=== PATIENT | female | born 1975 | race Hispanic/Latino ===

== ENCOUNTER 2024-05-19 00:45 | Observation (INO) | payer OTHER ==
[2024-05-19 01:35] LABS: PT Prothrombin Time 12.3 SECONDS (9.4-12.5); Protime INR 1.12
[2024-05-19 01:40] LABS: Absolute Basophils 0.1 K/uL (0-0.5); Absolute Eosinophils 0.1 K/uL (0-0.5); Absolute Lymphocytes (CBC) 3.4 K/uL (0.7-4.9); Absolute Monocytes 0.4 K/uL (0.1-1.3); Absolute Neutrophil 4.3 K/uL (1.8-8.0); Basophils % 0.8 % (0-1.3); Eosinophils % 1.7 % (0-4.4); Hematocrit 35.8 % (36.0-45.0); Hemoglobin 11.7 g/dL (12.0-15.0); Lymphocytes % 40.6 % (15.3-44.8); MCH 26.8 pg (27.0-35.0); MCHC 32.7 g/dL (32.0-36.0); MCV 82.1 fL (80-100); MPV 8.9 fL (7.6-11.3); Monocytes % 5.2 % (3.3-12.3); Neutrophils % 51.7 % (41.7-73.7); Platelets 321 thou/uL (152-406); RBC Red Blood Cell Count 4.37 M/uL (3.86-4.86); Red Cell Distribution Width 13.7 % (12.1-15.2)
[2024-05-19 01:53] LABS: ALT/SGPT 36 U/L (13-56); AST/SGOT 17 U/L (15-37); Albumin 3.5 g/dL (3.4-5.0); Albumin/Globulin Ratio 0.8 (1.1-1.8); Alkaline Phosphatase 50 U/L (45-117); Anion Gap 8.5 mEq/L (5.0-15.0); BUN Blood Urea Nitrogen 16 mg/dL (7-18); Bicarbonate 26 mEq/L (21-32); Bilirubin Total 0.3 mg/dL (0.2-1.0); Globulin 4.4 g/dL (2.3-3.5); Glomerular Filtration Rate 107 ml/min (=/>90); Glucose Level 125 mg/dL (74-106); Magnesium 1.8 mg/dL (1.6-2.4); NT PRO-BNP 16 pg/mL (<125); Potassium 3.5 mEq/L (3.5-5.1); Protein, Total 7.9 g/dL (6.4-8.2); Sodium Level 138 mEq/L (136-145); Troponin High Sensitivity 13.4 pg/mL (<58.9)
[2024-05-19 01:57] LABS: Bilirubin Direct < 0.2 mg/dL (0-0.2); Bilirubin Indirect, Calculated 0.1 mg/dL (0.2-0.8)
--- NOTE | 2024-05-19 02:03 | EDPHYS ---
Physician Documentation [facility] Name: Xochitl Maki Age: 49 yrs Sex: Female : 1975 Arrival Date: 05/19/2024 Time: 00:45 Bed 28 Private MD: ED Physician Kurt Callahan HPI: 05/19 01:14 This 49 yrs old Female presents to ER via Ambulatory with complaints of Chest sp3 Pain. 01:14 41-year-old female with history of diastolic heart failure, CAD with 40% circumflex sp3 lesion, hypertension, hyperlipidemia presents with chest pain for 3 to 4 days. Patient initially called her job analysis manager Dr. Knutson who referred her to the ED for admission and probable heart cath in the morning. Patient denies any other symptoms including shortness of breath, prolonged immobilization, calf pain, prior DVT or PE, back pain, abdominal pain, nausea, vomiting, diarrhea or any other signs or symptoms on ROS at this time. Patient takes an aspirin daily.. Historical: - Allergies: 01:12 Motrin; ha1 01:12 Sulfa (Sulfonamide Antibiotics); ha1 - PMHx: 01:12 Hypercholesterolemia; Hypertensive disorder; Congestive heart failure; Coronary ha1 atherosclerosis; - PSHx: 01:12 Cholecystectomy; D\T\C; ha1 - Immunization history:: Adult Immunizations not up to date. - Infectious Disease History:: Denies. - Social history:: Smoking status: Patient denies any tobacco usage or history of. ROS: 01:15 Constitutional: Negative for fever, chills, and weight loss, Eyes: Negative for injury, sp3 pain, redness, and discharge, ENT: Negative for injury, pain, and discharge, Neck: Negative for injury, pain, and swelling, Respiratory: Negative for shortness of breath, cough, wheezing, and pleuritic chest pain, Abdomen/GI: Negative for abdominal pain, nausea, vomiting, diarrhea, and constipation, Back: Negative for injury and pain, MS/Extremity: Negative for injury and deformity, Skin: Negative for injury, rash, and discoloration, Neuro: Negative for headache, weakness, numbness, tingling, and seizure, Psych: Negative for depression, anxiety, suicide ideation, homicidal ideation, and hallucinations, Allergy/Immunology: Negative for hives, rash, and allergies, Endocrine: Negative for neck swelling, polydipsia, polyuria, polyphagia, and marked weight changes, Hematologic/Lymphatic: Negative for swollen nodes, abnormal bleeding, and unusual bruising, 01:15 All other systems are negative, Exam: 01:15 Constitutional: This is a well developed, well nourished patient who is awake, alert, sp3 and in no acute distress. Head/Face: Normocephalic, atraumatic. Eyes: Pupils equal round and reactive to light, extra-ocular motions intact. Lids and lashes normal. Conjunctiva and sclera are non-icteric and not injected. Cornea within normal limits. Periorbital areas with no swelling, redness, or edema. ENT: Nares patent. No nasal discharge, no septal abnormalities noted. External auditory canals are clear. Oropharynx with no redness, swelling, or masses, exudates, or evidence of obstruction, uvula midline. Mucous membranes moist. Neck: Trachea midline, no thyromegaly or masses palpated, and no cervical lymphadenopathy. Supple, full range of motion without nuchal rigidity, or vertebral point tenderness. No Meningismus. Chest/axilla: Normal chest wall appearance and motion. Nontender with no deformity. No lesions are appreciated. Cardiovascular: Regular rate and rhythm with a normal S1 and S2. No gallops, murmurs, or rubs. Normal PMI, no JVD. No pulse deficits. Respiratory: Lungs have equal breath sounds bilaterally, clear to auscultation and percussion. No rales, rhonchi or wheezes noted. No increased work of breathing, no retractions or nasal flaring. Abdomen/GI: Soft, non-tender, with normal bowel sounds. No distension or tympany. No guarding or rebound. No evidence of tenderness throughout. Back: No spinal tenderness. No costovertebral tenderness. Full range of motion. Skin: Warm, dry with normal turgor. Normal color with no rashes, no lesions, and no evidence of cellulitis. MS/ Extremity: Pulses equal, no cyanosis. Neurovascular intact. Full, normal range of motion. Neuro: Awake and alert, GCS 15, oriented to person, place, time, and situation. Cranial nerves II-XII grossly intact. Motor strength 5/5 in all extremities. Sensory grossly intact. Cerebellar exam normal. Normal gait. Psych: Awake, alert, with orientation to person, place and time. Behavior, mood, and affect are within normal limits. 01:15 ECG was reviewed by the Attending Physician. EKG demonstrates normal sinus rhythm at 70 bpm with normal intervals, normal axis, normal QRS, nonspecific diffuse ST's ST changes diffusely without evidence of acute ischemia. Vital Signs: 00:48 BP 138 / 77; Pulse 72; Resp 17 S; Temp 98.2(T); Pulse Ox 100% on R/A; Weight 101.6 kg; ha1 Height 5 ft. 2 in. ; 01:26 BP 138 / 77; Pulse 68; Resp 16; Pulse Ox 99% on R/A; tm6 03:16 BP 113 / 60; Pulse 69; Pulse Ox 98% on R/A; tm6 00:48 Body Mass Index 40.97 (101.60 kg, 157.48 cm) ha1 MDM: 00:49 Patient medically screened. sp3 01:16 Data reviewed: vital signs, nurses notes, old medical records, lab test result(s), EKG, sp3 radiologic studies. ED course: 49-year-old female with extensive PMH now with chest pain here for admission and evaluation. Consider acute coronary syndrome versus angina versus GI pathology versus MSK. Workup will include standard full cardiac workup and 23-hour observation to hospitalist with Dr. Knutson on consult.. 02:02 ED course: Workup negative. X-ray is also normal. Will administer nitro patch, morphine sp3 and ondansetron IV. Patient will be admitted to Dr. Lawler with cardiology consultation.. 05/19 00:58 Order name: Basic Metabolic Panel; Complete Time: 02:00 05/19 00:58 Order name: CBC with Diff; Complete Time: 02:05/19 00:58 Order name: LFT's; Complete Time: 02:05/19 00:58 Order name: Magnesium; Complete Time: 02:05/19 00:58 Order name: NT PRO-BNP; Complete Time: 02:05/19 00:58 Order name: PT-INR; Complete Time: 02:01 05/19 00:58 Order name: Troponin HS; Complete Time: 02:05/19 03:30 Order name: Urinalysis w/ reflexes EDMS 05/19 03:30 Order name: CBC with Automated Diff EDMS 05/19 03:30 Order name: CBC with Automated Diff EDMS 05/19 03:30 Order name: Comprehensive Metabolic Panel EDMS 05/19 03:30 Order name: Comprehensive Metabolic Panel EDMS 05/19 03:30 Order name: Troponin High Sensitivity EDMS 05/19 03:30 Order name: Troponin High Sensitivity EDMS 05/19 03:30 Order name: Troponin High Sensitivity EDMS 05/19 03:30 Order name: Troponin High Sensitivity EDMS 05/19 00:58 Order name: XRAY Chest (1 view) sp3 05/19 03:30 Order name: CONS Physician Consult EDMS 05/19 00:58 Order name: Cardiac monitoring; Complete Time: : sp3 05/19 00:58 Order name: EKG - Nurse/Tech; Complete Time: sp3 05/19 00:58 Order name: IV Saline Lock; Complete Time: 01:30 sp3 05/19 00:58 Order name: Labs collected and sent; Complete Time: : sp3 05/19 00:58 Order name: O2 Per Protocol; Complete Time: : sp3 05/19 00:58 Order name: O2 Sat Monitoring; Complete Time: : sp3 Administered Medications: 02:15 Drug: Ondansetron IVP 4 mg IVP once; over 2 minutes Route: IVP; Site: right antecubital;ha1 02:17 Drug: morphine IVP or IV 2 mg IVP once over 4 mins Route: IVP; Infused Over: 4 mins; ha1 Site: right antecubital; 02:19 Drug: Nitroglycerin Transdermal Patch 0.4 mg/hr 1 patches Transdermal once Route: ha1 Transdermal; Site: anterior chest wall; Disposition Summary: 05/19/24 02:03 Hospitalization Ordered Notes: Hospitalization Status: Observation sp3 Provider: Bruce Lawler sp3 Condition: Stable sp3 Problem: an acute exacerbation sp3 Symptoms: have worsened sp3 Bed/Room Type: Standard sp3 Location: [facility] ER HOLD(05/19/24 04:22) rv1 Room Assignment: ERHOLD-(05/19/24 04:22) rv1 Diagnosis - Chest Pain sp3 Forms: - Medication Reconciliation Form sp3 - SBAR form sp3 - Leadership Thank You Letter sp3 Signatures: Dispatcher [employer] EDMS Kurt Callahan MD MD sp3 Teresa Slaughter, RN RN ha1 Dayana Piedra rv1 Corrections: (The following items were deleted from the chart) 00:58 00:58 BASIC METABOLIC PANEL+C.LAB.BRZ ordered. EDMS EDMS 00:58 00:58 CBC+H.LAB.BRZ ordered. EDMS EDMS 00:58 00:58 HEPATIC FUNCTION+C.LAB.BRZ ordered. EDMS EDMS 00:58 00:58 MAGNESIUM+C.LAB.BRZ ordered. EDMS EDMS 00:58 00:58 PROBNP+C.LAB.BRZ ordered. EDMS EDMS 00:58 00:58 PROTIME (+INR)+COAG.LAB.BRZ ordered. EDMS EDMS 00:58 00:58 Troponin High Sensitivity+C.LAB.BRZ ordered. EDMS EDMS 00:59 00:58 Chest Single View+RAD.RAD.BRZ ordered. EDMS EDMS 04:22 02:03 Telemetry/MedSurg (observation) sp3 rv1 04:22 02:03 sp3 rv1
--- NOTE | 2024-05-19 02:03 | ER ---
Nurse's Notes [facility] Name: Xochitl Maki Age: 49 yrs Sex: Female : 1975 Arrival Date: 05/19/2024 Time: 00:45 Bed 28 Private MD: Diagnosis: Chest Pain Presentation: 05/19 00:48 Chief complaint: Patient states: I have been having off and on chest pain for the past ha1 couple of days. I went to the hospital yesterday and they told me my troponin levels were normal but I have a blockage. 00:48 Coronavirus screen: Vaccine status: Patient reports receiving the 2nd dose of the covid ha1 vaccine. Moderna. Ebola Screen: No symptoms or risks identified at this time. Initial Sepsis Screen: Does the patient meet any 2 criteria? No. Patient's initial sepsis screen is negative. Does the patient have a suspected source of infection? No. Patient's initial sepsis screen is negative. Risk Assessment: Do you want to hurt yourself or someone else? Patient reports no desire to harm self or others. Onset of symptoms was May 19, 2024. 00:48 Method Of Arrival: Ambulatory ha1 00:48 Acuity: SUKI 3 ha1 01:14 Acuity: SUKI 2 jb4 Triage Assessment: 00:48 General: Appears comfortable, Behavior is calm, cooperative. Pain: Complains of pain in ha1 chest Pain does not radiate. Pain currently is 7 out of 10 on a pain scale. Quality of pain is described as pressure. Neuro: Level of Consciousness is awake, alert, obeys commands, Oriented to person, place, time, situation. Cardiovascular: Heart tones S1 S2 present Capillary refill < 3 seconds Patient's skin is warm and dry. Cardiovascular: Reports chest pain. Respiratory: Airway is patent Respiratory effort is even, unlabored, Respiratory pattern is regular, symmetrical. GI: No signs and/or symptoms were reported involving the gastrointestinal system. : No signs and/or symptoms were reported regarding the genitourinary system. Musculoskeletal: Circulation, motion, and sensation intact. Range of motion: intact in all extremities. Historical: - Allergies: 01:12 Motrin; ha1 01:12 Sulfa (Sulfonamide Antibiotics); ha1 - PMHx: 01:12 Hypercholesterolemia; Hypertensive disorder; Congestive heart failure; Coronary ha1 atherosclerosis; - PSHx: 01:12 Cholecystectomy; D\T\C; ha1 - Immunization history:: Adult Immunizations not up to date. - Infectious Disease History:: Denies. - Social history:: Smoking status: Patient denies any tobacco usage or history of. Screenin:26 [facility] ED Fall Risk Assessment (Adult) History of falling in the last 3 months, tm6 including since admission No falls in past 3 months (0 pts) Confusion or Disorientation No (0 pts) Intoxicated or Sedated No (0 pts) Impaired Gait No (0 pts) Mobility Assist Device Used No (0 pt) Altered Elimination No (0 pt) Score/Fall Risk Level 0 - 2 = Low Risk Oriented to surroundings, Maintained a safe environment, Educated pt \T\ family on fall prevention, incl call for assistance when getting out of bed. Abuse screen: Denies threats or abuse. Denies injuries from another. Nutritional screening: No deficits noted. Tuberculosis screening: No symptoms or risk factors identified. Assessment: 00:48 Reassessment: see triage assessment. ha1 01:50 Reassessment: Patient and/or family updated on plan of care and expected duration. Pain ha1 level reassessed. Patient is alert, oriented x 3, equal unlabored respirations, skin warm/dry/pink. 03:16 Reassessment: Patient appears in no apparent distress at this time. No changes from tm6 previously documented assessment. Vital Signs: 00:48 BP 138 / 77; Pulse 72; Resp 17 S; Temp 98.2(T); Pulse Ox 100% on R/A; Weight 101.6 kg; ha1 Height 5 ft. 2 in. ; 01:26 BP 138 / 77; Pulse 68; Resp 16; Pulse Ox 99% on R/A; tm6 03:16 BP 113 / 60; Pulse 69; Pulse Ox 98% on R/A; tm6 00:48 Body Mass Index 40.97 (101.60 kg, 157.48 cm) ha1 ED Course: 00:48 Patient arrived in ED. ra3 00:49 Kurt Callahan MD is Attending Physician. sp3 01:00 EKG done, by ED staff, reviewed by Kurt Callahan MD. tm6 01:12 Triage completed. ha1 01:15 Inserted saline lock: 20 gauge in right antecubital area, using aseptic technique. ha1 Blood collected. 01:26 Patient has correct armband on for positive identification. Bed in low position. Call tm6 light in reach. Side rails up X 1. Provided Education on: use of call baird. Client placed on continuous cardiac and pulse oximetry monitoring. NIBP monitoring applied. traffic monitor specialist on. Pulse ox on. NIBP on. Door closed. Noise minimized. Warm blanket given. 01:30 Basic Metabolic Panel Sent. ha1 01:30 CBC with Diff Sent. ha1 01:30 LFT's Sent. ha1 01:30 Magnesium Sent. ha1 01:30 NT PRO-BNP Sent. ha1 01:30 PT-INR Sent. ha1 01:30 Troponin HS Sent. ha1 01:31 XRAY Chest (1 view) In Process Unspecified. EDMS 02:02 Bruce Lawler MD is Hospitalizing Provider. sp3 Administered Medications: 02:15 Drug: Ondansetron IVP 4 mg IVP once; over 2 minutes Route: IVP; Site: right antecubital;ha1 02:17 Drug: morphine IVP or IV 2 mg IVP once over 4 mins Route: IVP; Infused Over: 4 mins; ha1 Site: right antecubital; 02:19 Drug: Nitroglycerin Transdermal Patch 0.4 mg/hr 1 patches Transdermal once Route: ha1 Transdermal; Site: anterior chest wall; Medication: 01:27 VIS not applicable for this client. tm6 Outcome: 02:03 Decision to Hospitalize by Provider. sp3 10:12 Patient left the ED. ld1 Signatures: Dispatcher [employer] EDVT Segundo Reyes RN RN jb4 Ev Lucas RN RN ld1 Kurt Callahan MD MD sp3 Teresa Slaughter RN RN ha1 Alexandra Gilbert RN RN tm6 Shanice Rain 3
[2024-05-19] MEDS ORDERED: NITROGLYCERIN 1 GM PKT TD ONE (02:08)
[2024-05-19] MEDS ORDERED: ONDANSETRON 4 MG/2 ML VIAL ONE (02:08)
[2024-05-19] MEDS ORDERED: MORPHINE 4 MG/ML SYR ONE (02:09)
[2024-05-19] MEDS ORDERED: ONDANSETRON 4 MG/2 ML VIAL IV PRN (03:24)
[2024-05-19] MEDS ORDERED: ACETAMINOPHEN 325 MG TABLET PO PRN (03:24)
--- NOTE | 2024-05-19 03:25 | P.HP ---
Certification for Inpatient Patient admitted to: Observation With expected LOS: <2 Midnights Practitioner: I am a practitioner with admitting privileges, knowledge of patient current condition, hospital course, and medical plan of care. Services: Services provided to patient in accordance with Admission requirements found in Title 42 Section 412.3 of the Code of Federal Regulations Patient History Date of Service: 05/19/24 Reason for admission: Chest Pain History of Present Illness: 49 yrs old Female with past medical history of hypertension, hyperlipidemia, CHF, CAD with coronary atherosclerosis ,asthma presents to the emergency room with chest pain. She reports chest pain is substernal radiates to the neck and left arm. Chest pain started 2 days ago and has been intermittent associated with slight shortness of breath as well . Chest pain and shortness of breath worse with exertion. She denies diaphoresis, cough, fever, palpitations, nausea vomiting diarrhea. She has been followed by Dr. Knutson whom she contacted her and advised to come to ER for possible LHC. She had a heart cath done previously which showed 40% circumflex lesion, Patient was assessed in the ER and is admitted for unstable angina and further management Allergies ibuprofen Allergy (Verified 08/14/23 09:26) FACIAL/EYE SWELLING Sulfa (Sulfonamide Antibiotics) Allergy (Verified 08/14/23 09:29) Rash Home medications list reviewed: Yes Home Medications: Atorvastatin Calcium [Lipitor] 20 mg PO BEDTIME #30 tab 08/14/23 Fenofibrate [Tricor*] 145 mg PO DAILY 08/14/23 Mometasone/Formoterol [Dulera 200 Mcg-5 Mcg Inhaler] 1 puff IH BID #1 inh 08/14/23 Olmesartan Medoxomil [Benicar] 20 mg PO DAILY 08/14/23 [place]-3/Dha/Epa/Fish Oil [Fish Oil 1,000 mg Softgel] 1 each PO DAILY 08/14/23 Pantoprazole [Protonix Tab*] 40 mg PO DAILY 08/14/23 predniSONE [Prednisone*] 20 mg PO BID #6 tab 08/14/23 - Past Medical/Surgical History Diabetic: No Past Medical History: Reviewed- Non-Contributory -: Hypertension -: Asthma -: Hyperlipidemia Past Surgical History: Reviewed- Non-Contributory -: Cholecystectomy -: D&C Psychosocial/ Personal History: , - Family History Family History: Reviewed- Non-Contributory - Social History Smoking Status: Never smoker Alcohol use: No CD- Drugs: No Caffeine use: No Review of Systems 10-point ROS is otherwise unremarkable Physical Examination - Vital Signs Temperature: 96.8 F Blood Pressure: 144/74 Pulse: 58 Respirations: 18 Pulse Ox (%): 94 - Physical Exam General: Alert, In no apparent distress, Oriented x3 HEENT: Atraumatic, Normocephalic Neck: Supple, 2+ carotid pulse no bruit Respiratory: Clear to auscultation bilaterally, Normal air movement Cardiovascular: Normal pulses, Regular rate/rhythm, Normal S1 S2 Capillary refill: <2 Seconds Gastrointestinal: Soft and benign, Non-distended, W/out hepatosplenomegaly Musculoskeletal: No clubbing, No swelling Integumentary: No rashes, No breakdown Neurological: Normal speech, Normal strength at 5/5 x4 extr, Cranial nerves 3-12 intact, Normal reflexes 2+, Normal affect Lymphatics: No axilla or inguinal lymphadenopathy - Studies Laboratory Data (last 24 hrs) 05/19/24 05/19/24 05/19/24 01:20 01:20 01:20 WBC 8.30 Hgb 11.7 L Hct 35.8 L Plt Count 321 PT 12.3 INR 1.12 Sodium 138 Potassium 3.5 BUN 16 Creatinine 0.70 Glucose 125 H Magnesium 1.8 Total Bilirubin 0.3 AST 17 ALT 36 Alkaline Phosphatase 50 Assessment and Plan - Problems (Diagnosis) (1) Chest pain Current Visit: No Status: Acute Plan: Unstable angina Will trend cardiac enzymes Will monitor telemetry Started on aspirin and statin EKG did not show any acute changes suggestive of ischemia Patient intermittent chest pain Will get an echocardiogram Cardiology consult Will keep n.p.o. for now Asthma uncontrolled Pulmonary consult Nebs, budesonide, steroids Hypertension Continue antihypertensives Titrate as needed Hyperlipidemia Resume home meds Obesity Advised lifestyle modification DVT prophylaxis N.p.o. Full code Discharge Plan: Home Plan to discharge in: 48 Hours - Advance Directives Does patient have a Living Will: No Does patient have a Durable POA for Healthcare: No - Code Status/Comfort Care Code Status: Full Code Time Spent Managing Pts Care (In Minutes): 48
[2024-05-19] MEDS ORDERED: HYDROCODONE/APAP 10/325 TAB PO PRN (04:22)
[2024-05-19] MEDS ORDERED: MORPHINE 4 MG/ML SYR IV PRN (04:22)
[2024-05-19] MEDS ORDERED: NITROGLYCERIN 0.4 MG/TAB SL PRN (04:22)
[2024-05-19 04:29] VITALS: BMI 40.9
[2024-05-19] MEDS: LEVOTHYROXINE SOD 0.125 MG TAB PO SCH (06:30)
[2024-05-19] MEDS: PANTOPRAZOLE 40MG TABLET PO SCH (07:30)
[2024-05-19] MEDS: POTASSIUM CL SA 10 MEQ TAB PO ONE (08:00)
[2024-05-19] MEDS: MAGNESIUM SULFATE 1 gm IVPB 1 GM/100 ML BAG IV ONE (08:00)
[2024-05-19] MEDS ORDERED: ASPIRIN 81 MG CHEWABLE TABLET ONE (08:35)
[2024-05-19] MEDS ORDERED: PANTOPRAZOLE 40MG TABLET PO ONE (08:35)
[2024-05-19] MEDS ORDERED: VALSARTAN 80 MG TAB ONE (08:35)
[2024-05-19] MEDS ORDERED: POTASSIUM CL SA 10 MEQ TAB PO ONE (08:36)
[2024-05-19] MEDS ORDERED: MAGNESIUM SULFATE 1 gm IVPB 1 GM/100 ML BAG IV ONE (08:36)
[2024-05-19] MEDS: ASPIRIN EC 81 MG TAB PO SCH (09:00)
[2024-05-19] MEDS: DULERA 200/5 (MOMETASONE/FORMOTEROL) INHALER IH SCH (09:00)
[2024-05-19] MEDS ORDERED: VALSARTAN 80 MG TAB PO SCH (09:00)
[2024-05-19] MEDS: FENOFIBRATE 160 MG TAB PO SCH ×2 (09:00→21:35)
[2024-05-19] MEDS: VALSARTAN 80 MG TAB PO ONE (09:00)
[2024-05-19] MEDS ORDERED: FENOFIBRATE 145 MG TAB PO SCH (09:00)
[2024-05-19] MEDS ORDERED: HEPA 1000U/500MLS 2,000 UNIT/1,000 ML BAG IV ONE (10:17)
[2024-05-19] MEDS ORDERED: LIDOCAINE 1% 20 ML MDV ONE (10:21)
[2024-05-19] MEDS ORDERED: VERAPAMIL HCL 10 MG/4 ML VIAL IV ONE (10:21)
[2024-05-19] MEDS ORDERED: NA CHLORIDE 0.9% 500 ML ONE (10:22)
[2024-05-19] MEDS ORDERED: ATROPINE SULF 1 MG/10 ML SYR IV ONE (10:22)
[2024-05-19] MEDS ORDERED: FENTANYL CITR 100 MCG/2 ML ONE (10:22)
[2024-05-19] MEDS ORDERED: MIDAZOLAM HCL 2 MG/2 ML INJ ONE (10:22)
[2024-05-19] MEDS ORDERED: CLOPIDOGREL 75 MG TABLET ONE (10:23)
[2024-05-19] MEDS ORDERED: TICAGRELOR 90 MG TABLET PO ONE (10:23)
[2024-05-19] MEDS ORDERED: HEPARIN 5000 UNIT/ML 1 ML VIAL ONE (10:23)
[2024-05-19] MEDS ORDERED: HEPARIN 10,000 UNIT/10 ML VIAL IV ONE (10:23)
--- NOTE | 2024-05-19 10:25 | P.CNS ---
Date of Consult: 05/19/24 Chief Complaint: Chest Pain History of Present Illness: Patient with PMH of HTN, HLD, CAD presented with worsening chest pain for the last week that became worse yesterday, pressure sensation radiating to the neck and jaw, no other associated symptoms. Allergies ibuprofen Allergy (Verified 08/14/23 09:26) FACIAL/EYE SWELLING Sulfa (Sulfonamide Antibiotics) Allergy (Verified 08/14/23 09:29) Rash Home Medications: Atorvastatin Calcium [Lipitor] 20 mg PO BEDTIME #30 tab 08/14/23 Fenofibrate [Tricor*] 145 mg PO DAILY 08/14/23 Mometasone/Formoterol [Dulera 200 Mcg-5 Mcg Inhaler] 1 puff IH BID #1 inh 08/14/23 Olmesartan Medoxomil [Benicar] 20 mg PO DAILY 08/14/23 [place]-3/Dha/Epa/Fish Oil [Fish Oil 1,000 mg Softgel] 1 each PO DAILY 08/14/23 Pantoprazole [Protonix Tab*] 40 mg PO DAILY 08/14/23 predniSONE [Prednisone*] 20 mg PO BID #6 tab 08/14/23 - Past Medical/Surgical History Diabetic: No -: Hypertension -: Asthma -: Hyperlipidemia -: Cholecystectomy -: D&C Psychosocial/ Personal History: , - Social History Smoking Status: Unknown if ever smoked Alcohol use: No CD- Drugs: No Caffeine use: No Review of Systems 10-point ROS is otherwise unremarkable Physical Examination Temp Pulse Resp BP Pulse Ox 96.8 F 77 16 124/71 99 05/19/24 04:20 05/19/24 09:00 05/19/24 08:00 05/19/24 09:00 05/19/24 08:00 General: Alert, In no apparent distress HEENT: Atraumatic, PERRLA, Mucous membr. moist/pink, EOMI, Sclerae nonicteric Neck: Supple, 2+ carotid pulse no bruit, No LAD, Without JVD or thyroid abnormality Respiratory: Clear to auscultation bilaterally, Normal air movement Cardiovascular: Regular rate/rhythm, Normal S1 S2 Gastrointestinal: Normal bowel sounds, No tenderness Musculoskeletal: No tenderness Integumentary: No rashes Neurological: Normal gait, Normal speech, Normal tone, Normal affect Lymphatics: No axilla or inguinal lymphadenopathy Laboratory Data (last 24 hrs) 05/19/24 05/19/24 05/19/24 01:20 01:20 01:20 WBC 8.30 Hgb 11.7 L Hct 35.8 L Plt Count 321 PT 12.3 INR 1.12 Sodium 138 Potassium 3.5 BUN 16 Creatinine 0.70 Glucose 125 H Magnesium 1.8 Total Bilirubin 0.3 AST 17 ALT 36 Alkaline Phosphatase 50 - Problems (1) Unstable angina Current Visit: Yes Status: Acute Plan: Patient with history of CAD presenting with concerning angina. will do coronary angiogram today. continue ASA 81 mg daily continue lipitor 20 mg daily (2) HTN (hypertension) Current Visit: Yes Status: Acute Plan: continue olmesartan. (3) HLD (hyperlipidemia) Current Visit: Yes Status: Acute Plan: continue Lipitor 20 mg daily
--- NOTE | 2024-05-19 11:40 | RAD REPORT ---
EXAM DESCRIPTION: RAD - Chest Single View - 05/19/2024 1:29 am CLINICAL HISTORY: CHEST PAIN COMPARISON: 08/13/2023. TECHNIQUE: XR CHEST 1 VIEW 05/19/2024 12:58 AM CDT FINDINGS: Cardiac silhouette is normal in size. Lungs are clear without consolidation, atelectasis, mass or edema. There is no pleural effusion. There is no pneumothorax. There are no acute osseous fin dings. IMPRESSION: Clear lungs. Electronically signed by: Mikhail Serrano MD 05/19/2024 01:48 AM CDT RP Due to temporary technical issues with the PACS/Fluency reporting system, reports are being signed by the in house radiologist without review as a courtesy to ensure prompt reporting. The interpreting r adiologist is fully responsible for the content of the report.
--- NOTE | 2024-05-19 13:48 | EKG ---
Test Date: 2024-05-19 Test Time: 00:59:40 Design Engineering Technician: ORALIA MEASUREMENT RESULTS: Intervals: Rate: 70 TX: 182 QRSD: 90 QT: 404 QTc: 436 [place]: P: 64 TX: 182 QRS: 55 T: 25 INTERPRETIVE STATEMENTS: Normal sinus rhythm Nonspecific T wave abnormality Abnormal ECG Compared to ECG 08/13/2023 22:44:52 T-wave abnormality now present ST (T wave) deviation no longer present Electronically Signed On 05-19-24 13:47:43 CDT by Rip Knutson
--- NOTE | 2024-05-19 18:34 | P.PN ---
Date of Service: 05/19/24 Patient seen and examined. She reports intermittent chest pain. History of coronary artery disease. Patient seen evaluated by cardiology Dr. Montes and scheduled for cardiac catheterization today but machine was done and it could not be done. Continue inpatient monitoring. N.p.o. for cardiac cath tomorrow per cardiology. Nuclear stress test tomorrow if cardiac cath cannot be done.
[2024-05-19] MEDS: ENOXAPARIN 40 MG/0.4 ML SQ SCH (20:00)
[2024-05-19] MEDS: ATORVASTATIN 20 MG TAB PO SCH (21:00)
[2024-05-19 21:35] LABS: Absolute Basophils 0.1 K/uL (0-0.5); Absolute Eosinophils 0.1 K/uL (0-0.5); Absolute Monocytes 0.6 K/uL (0.1-1.3); Absolute Neutrophil 4.3 K/uL (1.8-8.0); Basophils % 0.8 % (0-1.3); Hematocrit 33.4 % (36.0-45.0); Hemoglobin 11.1 g/dL (12.0-15.0); Lymphocytes % 37.5 % (15.3-44.8); MCH 27.2 pg (27.0-35.0); MCHC 33.1 g/dL (32.0-36.0); MCV 82.1 fL (80-100); MPV 8.6 fL (7.6-11.3); Monocytes % 7.3 % (3.3-12.3); Neutrophils % 53.4 % (41.7-73.7); Nucleated Red Blood Cells % 0.1 % (0-0); Platelets 313 thou/uL (152-406); RBC Red Blood Cell Count 4.07 M/uL (3.86-4.86)
[2024-05-19] MEDS: VALSARTAN 80 MG TAB PO SCH (21:35)
[2024-05-19 22:04] LABS: Albumin 3.4 g/dL (3.4-5.0); Albumin/Globulin Ratio 0.9 (1.1-1.8); Anion Gap 7.8 mEq/L (5.0-15.0); Bilirubin Total 0.3 mg/dL (0.2-1.0); Magnesium 2.3 mg/dL (1.6-2.4); Phosphorus 3.4 mg/dL (2.5-4.9); Potassium 3.8 mEq/L (3.5-5.1); Protein, Total 7.4 g/dL (6.4-8.2)
[2024-05-20 02:30] LABS: Absolute Eosinophils 0.1 K/uL (0-0.5); Absolute Monocytes 0.6 K/uL (0.1-1.3); Absolute Neutrophil 3.6 K/uL (1.8-8.0); Basophils % 0.6 % (0-1.3); Eosinophils % 1.4 % (0-4.4); Hematocrit 33.1 % (36.0-45.0); Hemoglobin 10.9 g/dL (12.0-15.0); MCH 26.9 pg (27.0-35.0); MCHC 32.9 g/dL (32.0-36.0); MCV 81.6 fL (80-100); MPV 8.7 fL (7.6-11.3); Monocytes % 7.8 % (3.3-12.3); Neutrophils % 49.2 % (41.7-73.7); Nucleated Red Blood Cells % 0.1 % (0-0); Platelets 308 thou/uL (152-406); RBC Red Blood Cell Count 4.05 M/uL (3.86-4.86)
[2024-05-20 02:41] LABS: Albumin 3.3 g/dL (3.4-5.0); Albumin/Globulin Ratio 0.8 (1.1-1.8); Anion Gap 7.9 mEq/L (5.0-15.0); Bilirubin Total 0.4 mg/dL (0.2-1.0); Globulin 3.9 g/dL (2.3-3.5); Magnesium 2.2 mg/dL (1.6-2.4); Potassium 3.9 mEq/L (3.5-5.1); Protein, Total 7.2 g/dL (6.4-8.2)
[2024-05-20] MEDS ORDERED: HEPA 1000U/500MLS 2,000 UNIT/1,000 ML BAG IV ONE (07:43)
[2024-05-20] MEDS ORDERED: LIDOCAINE 1% 20 ML MDV ONE (07:43)
[2024-05-20] MEDS ORDERED: MIDAZOLAM HCL 2 MG/2 ML INJ ONE (07:45)
[2024-05-20] MEDS ORDERED: FENTANYL CITR 100 MCG/2 ML ONE (07:45)
[2024-05-20] MEDS ORDERED: TICAGRELOR 90 MG TABLET PO ONE (07:46)
[2024-05-20] MEDS ORDERED: HEPARIN 10,000 UNIT/10 ML VIAL IV ONE (07:46)
[2024-05-20] MEDS ORDERED: CLOPIDOGREL 75 MG TABLET ONE (07:46)
[2024-05-20] MEDS ORDERED: ASPIRIN 325 MG TAB ONE (07:46)
[2024-05-20] MEDS ORDERED: NITROGLYCERIN/D5W 50 MG/250 ML BTL IV ONE (07:47)
[2024-05-20] MEDS ORDERED: NA CHLORIDE 0.9% 500 ML ONE (07:51)
[2024-05-20] MEDS ORDERED: VERAPAMIL HCL 10 MG/4 ML VIAL IV ONE (08:01)
[2024-05-20] MEDS ORDERED: HEPARIN 5000 UNIT/ML 1 ML VIAL ONE (08:01)
[2024-05-20 10:16] VITALS: TEMP 97.3
--- NOTE | 2024-05-20 10:18 | OP ---
Date of Procedure: 05/20/2024 Surgeon: Vasyl Montes Procedures Performed: 1.Left heart catheterization. 2.Selective coronary angiogram. Indication For Procedure: Unstable angina. Access: Right common femoral artery closed via an Angio-Seal. Complications: None. Sedation Time: 20 minutes with 1 of Versed and 50 of fentanyl. Estimated Blood Loss: Less than 50 cc. Description Of Procedure: After risks, and benefits, and alternatives were explained to the patient, patient agreed to proceed with procedure and signed informed consent. The patient was brought back to the laborer cook house, prepped and draped in a sterile fashion. Time-out was performed. Sedation was admi nistered. Right common femoral artery ultrasound-guided micropuncture technique was obtained. JL4 c atheter was advanced over a J-wire for the selective coronary angiogram of the left coronary system t hat was exchanged for a JR4 catheter into the LV cavity. LVEDP was obtained. Pullback did not show any gradient. Same catheter was used for selective coronary angiogram of the right coronary artery s ystem. At the end of procedure, catheter was removed and the sheath was removed. Angio-Seal applied . Hemostasis was achieved, and the patient was moved back to the recovery in stable condition. Findings: 1.Left main normal. 2.LAD normal. 3.Left circ; proximal 20% to 30% disease and mild luminal irregularities. 4.RCA is normal. 5.LVEDP 20 mmHg. Assessment And Plan: 1.Mild proximal left circ disease. 2.Continue aggressive medical management for CAD. LUKE/LAZARA Voice ID: [id number] Report ID: [id number]
--- NOTE | 2024-05-20 10:58 | P.PN ---
Subjective Date of Service: 05/20/24 Chief Complaint: Chest Pain Subjective: No new changes, No C/O voiced, Tolerating diet, Ambulating, Improving Review of Systems 10-point ROS is otherwise unremarkable Physical Examination - Vital Signs Temperature: 97.3 F Blood Pressure: 111/57 Pulse: 65 Respirations: 16 Pulse Ox (%): 95 - Physical Exam General: Alert, In no apparent distress HEENT: Atraumatic, PERRLA, EOMI Neck: Supple, JVD not distended Respiratory: Clear to auscultation bilaterally, Normal air movement Cardiovascular: Regular rate/rhythm, Normal S1 S2 Gastrointestinal: Normal bowel sounds, No tenderness Musculoskeletal: No tenderness Integumentary: No rashes Neurological: Normal speech, Normal tone, Normal affect Lymphatics: No axilla or inguinal lymphadenopathy - Studies Medications List Reviewed: Yes Assessment And Plan - Current Problems (Diagnosis) (1) Unstable angina Current Visit: Yes Status: Acute Plan: Patient with history of CAD presenting with concerning angina. coronary angiogram done today and shows mild CAD. continue ASA 81 mg daily continue lipitor 20 mg daily (2) HTN (hypertension) Current Visit: Yes Status: Acute Plan: continue Valsartan. (3) HLD (hyperlipidemia) Current Visit: Yes Status: Acute Plan: continue Lipitor 20 mg daily
[2024-05-20 11:54] LABS: Specific Gravity > 1.030 (1.005-1.030); Urine Bilirubin NEGATIVE (Negative); Urine Blood Negative (Negative); Urine Clarity Clear (Clear); Urine Color Light-Yellow (Yellow); Urine Glucose NEGATIVE (Negative); Urine Ketones NEGATIVE (Negative); Urine Microscopic Reflex YN NO UMIC; Urine Nitrite NEGATIVE (Negative); Urine Protein NEGATIVE (Negative); Urine Urobilinogen Normal (Normal); Urine pH 6.5 (5.0-7.0)
[2024-05-20 12:25] VITALS: BP 121/59
--- NOTE | 2024-05-20 12:30 | P.DS ---
Admission Date: 05/19/24 Discharge Date: 05/20/24 Disposition: ROUTINE DISCHARGE Discharge Condition: FAIR Reason for Admission: Chest Pain - Problems (1) Hypertriglyceridemia Current Visit: Yes Status: Acute (2) Asthma Current Visit: Yes Status: Acute (3) HTN (hypertension) Current Visit: Yes Status: Acute (4) Chest pain Current Visit: No Status: Acute Brief History of Present Illness: 49 yrs old Female with past medical history of hypertension, hyperlipidemia, CHF, CAD with coronary atherosclerosis ,asthma presented to the emergency room with chest pain. She reported substernal chest pain that radiates to the neck and left arm. Chest pain started 2 days prior, intermittent associated with shortness of breath. She has been followed by Dr. Knutson whom she contacted and he advised her to come to ER for possible LHC. She had a heart cath done previously which showed 40% circumflex lesion, Patient was assessed in the ER and was admitted for unstable angina and further management Hospital Course: Patient was placed on observation on the medical floor. Troponin trended negative. Patient was seen and evaluated by cardiology next hours to perform cardiac catheterization. Cardiac catheterization reported mild coronary artery disease, no significant stenosis or occlusion to warrant PCI. Patient is deemed stable for discharge per cardiology. Patient raised the question of checking D- dimer as initial evaluation for possible PE. There is the possibility of false positive D-dimer test given patient just had a procedure. She may also have to wait for at least 24 hours before CTA thorax can be done to rule out PE. 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 Vital Signs/Physical Exam: Temp Pulse Resp BP Pulse Ox 97.3 F 75 14 121/59 L 93 05/20/24 12:00 05/20/24 12:00 05/20/24 12:00 05/20/24 12:05/20/24 12:00 General: Alert, In no apparent distress, Oriented x3 HEENT: Mucous membr. moist/pink, Sclerae nonicteric Neck: JVD not distended Respiratory: Clear to auscultation bilaterally, Normal air movement Cardiovascular: No edema, Regular rate/rhythm, Normal S1 S2 Gastrointestinal: Normal bowel sounds, Soft and benign, Non-distended Musculoskeletal: No swelling Integumentary: No rashes, No cyanosis Neurological: Normal strength at 5/5 x4 extr, Cranial nerves 3-12 intact Laboratory Data at Discharge: WBC 7.30 thou/uL (4.3-10.9) 05/20/24 01:56 Hgb 10.9 g/dL (12.0-15.0) L 05/20/24 01:56 Hct 33.1 % (36.0-45.0) L 05/20/24 01:56 Plt Count 308 thou/uL (152-406) 05/20/24 01:56 PT 12.3 SECONDS (9.4-12.5) 05/19/24 01:20 INR 1.12 05/19/24 01:20 Sodium Cancelled 05/20/24 06:00 Potassium Cancelled 05/20/24 06:00 BUN Cancelled 05/20/24 06:00 Creatinine Cancelled 05/20/24 06:00 Glucose Cancelled 05/20/24 06:00 Phosphorus 3.4 mg/dL (2.5-4.9) 05/19/24 21:11 Magnesium Cancelled 05/20/24 06:00 Total Bilirubin 0.4 mg/dL (0.2-1.0) 05/20/24 01:56 AST 28 U/L (15-37) 05/20/24 01:56 ALT 62 U/L (13-56) H 05/20/24 01:56 Alkaline Phosphatase 50 U/L (45-117) 05/20/24 01:56 Home Medications: Fenofibrate [Tricor*] 145 mg PO BEDTIME 08/14/23 Olmesartan Medoxomil [Benicar] 20 mg PO DAILY 08/14/23 [place]-3/Dha/Epa/Fish Oil [Fish Oil 1,000 mg Softgel] 1 each PO BEDTIME 08/14/23 Pantoprazole [Protonix Tab*] 40 mg PO BEDTIME 08/14/23 predniSONE [Prednisone*] 20 mg PO BID #6 tab 08/14/23 Atorvastatin Calcium [Lipitor*] 20 mg PO BEDTIME #30 tab 05/20/24 Mometasone/Formoterol [Dulera 200 Mcg/5 Mcg Inhaler] 1 puff IH BID #1 inhaler 05/20/24 New Medications: Mometasone/Formoterol [Dulera 200 Mcg/5 Mcg Inhaler] 1 puff IH BID #1 inhaler Atorvastatin Calcium [Lipitor*] 20 mg PO BEDTIME #30 tab Diet: AHA Activity: Ad thony Followup: Latrice Heredia [facility] [Primary Care Provider] - 1-2 Weeks Time spent managing pt's care (in minutes): 28
[2024-05-20 16:04] VITALS: O2SAT 93
== END 2024-05-20 15:41 | disposition home or self-care (01) ==
LOC: ER 00:45 → ERHOLD 03:24 → 2ND 12:50
PROVIDERS: ADMIT Family Medicine; ATTEND Internal Medicine
PROC: 4A023N7 Measurement of Cardiac Sampling and Pressure, Left Heart, Percutaneous Approach (ICD-10-PCS; principal; 2024-05-19)
PROC: B2111ZZ Fluoroscopy of Multiple Coronary Arteries using Low Osmolar Contrast (ICD-10-PCS; 2024-05-19)
DX: I25.110 Atherosclerotic heart disease of native coronary artery with unstable angina pectoris (principal); I11.0 Hypertensive heart disease with heart failure; I50.9 Heart failure, unspecified; J45.909 Unspecified asthma, uncomplicated; E78.1 Pure hyperglyceridemia; E78.5 Hyperlipidemia, unspecified; E66.9 Obesity, unspecified; Z68.41 Body mass index [BMI] 40.0-44.9, adult; Z79.899 Other long term (current) drug therapy; Z88.2 Allergy status to sulfonamides; Z88.8 Allergy status to other drugs, medicaments and biological substances; Z90.49 Acquired absence of other specified parts of digestive tract
CPT/HCPCS: 36415; 71045; 76937; 80048; 80053; 80061; 80076; 81003; 83735; 83880; 84100; 84484; 85025; 85610; 93005; 93458; 96374; 96375; 99152; 99153; 99285; C1893; G0269; G0378; J0461; J1644; J2001; J2250; J2405; J3010; J3475; J3535; J7040; Q9966